=== PATIENT | male | born 1950 | race Caucasian/White ===

== ENCOUNTER → 2018-10-09 | Outpatient (CLI) | payer MEDICARE | END | disposition home or self-care (01) | LOC: PCVCCLINIC 11:54 | PROVIDERS: ATTEND Internal Medicine Cardiovascular Disease | DX: I25.10 Atherosclerotic heart disease of native coronary artery without angina pectoris (principal); I77.9 Disorder of arteries and arterioles, unspecified; I10 Essential (primary) hypertension; F17.210 Nicotine dependence, cigarettes, uncomplicated; E78.00 Pure hypercholesterolemia, unspecified; Z72.0 Tobacco use; Z88.1 Allergy status to other antibiotic agents; Z79.82 Long term (current) use of aspirin | CPT/HCPCS: 36415; 80061; 93005; G0463 ==

== ENCOUNTER → 2018-12-04 | Outpatient (CLI) | payer MEDICARE ==
--- NOTE | 2018-12-04 14:58 | PCVCIMAG ---
APPROVED REPORT Patient Location: Out-Patient Indications Stenosis Doppler Spectral Velocity Analysis PSV / EDVPSV / EDV ECA (R) 128 / 12 cm/sECA (L) 177 / 9 cm/s dICA (R) 77 / 21 cm/sdICA (L) 86 / 29 cm/s Cheko (R) 85 / 26 cm/smICA (L) 96 / 27 cm/s pICA (R) 53 / 14 cm/spICA (L) 90 / 23 cm/s Bulb (R) 42 / 6 cm/sBulb (L) 63 / 11 cm/s dCCA (R) 77 / 13 cm/sdCCA (L) 94 / 18 cm/s mCCA (R) 59 / 14 cm/smCCA (L) 108 / 18 cm/s Vert (R) 52 / 11 cm/sVert (L) 53 / 14 cm/s ICA/CCA 1.10 ICA/CCA 1.02 Findings The right carotid bulb has moderate plaque. The right proximal internal carotid artery shows <40% stenosis; prior stent The right common carotid artery shows no significant stenosis. The right external carotid artery shows no significant stenosis. The left carotid bulb has moderate plaque. The left proximal internal carotid artery shows <40% stenosis. The left common carotid artery shows <40% stenosis. The left external carotid artery shows >50% stenosis. Conclusion 1. Right internal carotid artery stent; right ICA stenosis (<40%) 2. Left common and internal carotid artery stenoses (<40%) 3. Antegrade vertebral flow
--- NOTE | 2018-12-04 15:39 | PCVCIMAG ---
APPROVED REPORT Study performed: 12/04/2018 14:58:34 Exam: Stress Echocardiogram Indication: Hyperlipidemia, Hypertension Patient Location: Echo lab Stress Nurse: Viola Mosquera RN Status: routine Ht: 5 ft 7 in HR: 93 bpm BP: 120/70 mmHg Rhythm: NSR Medical History Medical History: HTN, Hyperlipidemia, Carotid stent, smoking, previous ETOH Abuse Procedure The patient underwent an Exercise Stress Test using the Shaji Protocol. Blood pressure, heart rate, and EKG were monitored. An Echocardiogram was performed by tool rental technician in four stages in quad fashion. At peak stress, four selected images were obtained and placed side by side with resting images for comparison. Stress Test Details Stress Test: Exercise stress testing was performed using a Shaji protocol. HR Resting HR: 93 bpmMax Heart Rate (APMHR): 153 bpm Max HR Achieved: 155 bpmTarget HR (85% APMHR): 130 bpm % of APMHR: 101 Recovery HR: 108 bpm HR response to stress: Normal HR response to stress BP Resting BP: 120/70 mmHg Max BP: 182/80 mmHg Recovery BP: 120/70 mmHg BP response to stress: Normal blood pressure response to stress. ECG Resting ECG: Sinus Rhythm Stress ECG: Sinus Rhythm Recovery ECG: Sinus Rhythm Clinical Reason for Termination: Maximal effort Exercise duration: 9 min 45 sec Highest Stage Achieved: Stage 4: 4.2 mph at 16% grade. Exercise capacity: 12.50 METs Overall Exercise Capacity for Age: Normal Pre-Stress Echo The resting Echocardiogram showed normal left ventricular contractility with an estimated Ejection Fraction of about 55-60%. Normal wall motion in all segments on baseline images. Post-Stress Echo The stress Echocardiogram showed normal left ventricular contractility with an estimated Ejection Fraction of about 60-65%. Normal augmentation of wall motion in all segments on post stress images. Clinical No clinical or ECG evidence for ischemia. Conclusion Clinical Response: Non-ischemic Exercise Capacity: Average Stress ECG Response: Non-ischemic Stress Echo Images: Non-ischemic The left ventricle is normal in size and wall thickness in both the rest and stress images. Other Information Study Quality: Good <Conclusion> The left ventricle is normal in size and wall thickness in both the rest and stress images.
== END | disposition home or self-care (01) ==
LOC: PCVCIMAG 13:20
PROVIDERS: ATTEND Internal Medicine Cardiovascular Disease
DX: I65.23 Occlusion and stenosis of bilateral carotid arteries (principal); I77.9 Disorder of arteries and arterioles, unspecified; E78.5 Hyperlipidemia, unspecified; I10 Essential (primary) hypertension; F17.200 Nicotine dependence, unspecified, uncomplicated; Z98.890 Other specified postprocedural states; Z95.828 Presence of other vascular implants and grafts
CPT/HCPCS: 93325; 93351; 93880